=== PATIENT | male | born 1955 | race African-American/Black ===

== ENCOUNTER 2017-01-30 12:25 | Emergency (ER) | payer OTHER ==
[~2017-01-30] VITALS: Ht 170.2 cm; Wt 65.0 kg
[2017-01-30 12:27] VITALS: BP 184/86
== END 2017-01-30 13:35 | disposition home or self-care (01) ==
LOC: ER 12:25
DX: Z02.89 Encounter for other administrative examinations (principal); I10 Essential (primary) hypertension; E78.00 Pure hypercholesterolemia, unspecified; Z86.73 Personal history of transient ischemic attack (TIA), and cerebral infarction without residual deficits
CPT/HCPCS: 99283